=== PATIENT | male | born 1995 | race Two or more races ===

== ENCOUNTER 2022-07-11 08:45 | Emergency (ER) | payer SELFPAY ==
[~2022-07-11] VITALS: Ht 177.8 cm; Wt 71.0 kg
[2022-07-11] MEDS ORDERED: KETOROLAC 30MG/ML VIAL IV STA (09:10)
[2022-07-11] MEDS ORDERED: ONDANSETRON HCL 4MG/2ML INJ IV STA (09:10)
[2022-07-11] MEDS ORDERED: SODIUM CHLORIDE 0.9% 1,000 ML IV ONE (09:15)
[2022-07-11 10:26] LABS: HEMATOCRIT. 47.4 % (42.0-52.0); HEMOGLOBIN. 16.1 g/dL (14.0-18.0); MEAN CORPUSCULAR HEMOGLOBIN 34.5 pg (28.0-32.0); MEAN CORPUSCULAR VOLUME 101.7 fL (80.0-94.0); MEAN PLATELET VOLUME 8.4 fl (7.4-10.4); PLATELET 224 x1000/uL (130-400); RED BLOOD CELL COUNT 4.66 mill/uL (4.7-6.1); RED CELL DISTRIBUTION WIDTH 16.3 % (11.6-14.6)
[2022-07-11 10:30] LABS: CHLORIDE 101 mEq/L (98-107)
[2022-07-11 10:39] LABS: ETHANOL BLOOD 50 mg/dL
[2022-07-11 10:40] VITALS: BP 145/63
[2022-07-11] MEDS ORDERED: CHLORDIAZEPOXIDE 25MG CAPSULE PO ONE (11:30)
[2022-07-11 11:53] LABS: PLATELET ESTIMATE NORMAL
[2022-07-11] MEDS ORDERED: ONDA4TAB50 MT (12:12)
[2022-07-11] MEDS ORDERED: CHLO5CAP3 MT (12:12)
== END 2022-07-11 12:26 | disposition home or self-care (01) ==
LOC: ER 08:45
DX: R10.33 Periumbilical pain (principal); F10.239 Alcohol dependence with withdrawal, unspecified; Y90.2 Blood alcohol level of 40-59 mg/100 ml
CPT/HCPCS: 36415; 74176; 80053; 80320; 83690; 85025; 93005; 96361; 96374; 96375; 99285; J1885; J2405; J7030; G0480